=== PATIENT | male | born 1975 ===

== ENCOUNTER 2016-11-10 23:06 | Observation (INO) | payer MEDICAID ==
[2016-11-10 23:13] VITALS: RESP 17; O2SAT 100
[2016-11-10] MEDS ORDERED: Iohexol 240 (50 ml) PO ONE (23:53)
[2016-11-10] MEDS ORDERED: Sodium Chloride 0.9% 1,000 ML IV STA (23:54)
[2016-11-11] MEDS ORDERED: Iohexol 240 (50 ml) ONE (00:14)
--- NOTE | 2016-11-11 00:18 | ED PDOC ---
HPI:Nausea, Vomiting, Diarrhea Time Seen by Provider: 11/10/16 23:34 Chief Complaint (Nursing): GI Problem Chief Complaint (Provider): Abdominal Pain, Vomiting, Nausea and Diarrhea History Per: Patient History/Exam Limitations: no limitations Onset/Duration Of Symptoms: Hrs Current Symptoms Are (Timing): Still Present Associated Symptoms: Nausea, Vomiting, Diarrhea Additional Complaint(s): Alec Chapa, a 41 year old male, who has HIV (does not know CV4 or viral load) and is status post appendectomy presents to the ED complaining of diarrhea, nausea, abdominal pain and vomiting. The patient reports that he was [facility] and around 2pm he started developing fever and pain. He states that he has had 10 episodes of non bloody and non bilious vomiting and diarrhea. Patient is compliant with all HIV medication. Past Medical History Reviewed: Historical Data, Nursing Documentation, Vital Signs Vital Signs: Last Vital Signs Temp 97.5 F L 11/10/16 23:10 Pulse 85 11/10/16 23:10 Resp 17 11/10/16 23:10 BP 127/74 11/10/16 23:10 Pulse Ox 100 11/10/16 23:10 - Medical History PMH: HIV - Surgical History Surgical History: Appendectomy - Family History Family History: States: Unknown Family Hx - Home Medications Home Medications: Ambulatory Orders Medication Instructions Recorded Ciprofloxacin [Cipro] 500 mg PO BID 7 Days 11/11/16 Dicyclomine [Dicyclomine HCl] 10 mg PO TID #20 cap 11/11/16 metroNIDAZOLE [Flagyl] 500 mg PO BID 7 Days 11/11/16 - Allergies Allergies/Adverse Reactions: Allergies Allergy/AdvReac Type Severity Reaction Status Date / Time No Known Allergies Allergy Verified 11/10/16 23:13 Review of Systems Constitutional: Positive for: Fever Gastrointestinal: Positive for: Nausea, Vomiting (x10 episodes (non bloody, non bilious)), Abdominal Pain, Diarrhea Physical Exam - Reviewed Nursing Documentation Reviewed: Yes Vital Signs Reviewed: Yes - Physical Exam Appears: Positive for: Non-toxic, No Acute Distress Head Exam: Positive for: ATRAUMATIC, NORMAL INSPECTION, NORMOCEPHALIC Skin: Positive for: Warm, Dry, Pallor Eye Exam: Positive for: Normal appearance, EOMI, PERRL ENT: Positive for: Normal ENT Inspection Neck: Positive for: Normal, Painless ROM, Supple Cardiovascular/Chest: Positive for: Regular Rate, Rhythm, Chest Non Tender. Negative for: Tachycardia Respiratory: Positive for: Normal Breath Sounds. Negative for: Wheezing, Respiratory Distress Gastrointestinal/Abdominal: Positive for: Soft, Tenderness (Right upper and lower tenderness to palpation.). Negative for: Guarding, Rebound Neurologic/Psych: Positive for: Alert, Oriented, Gait - Laboratory Results Result Diagrams: 11/10/16 00:14 11/10/16 00:14 - ECG O2 Sat by Pulse Oximetry: 100 (RA) Pulse Ox Interpretation: Normal Medical Decision Making Medical Decision Makin Initial Impression: Diverticulitis vs Colitis vs Other intraabdominal infection Initial Plan: * ABD&PELV PO and IV Contrast * Comp Metabolic Panel * Lactic Acid * Lipase * CBC * Morphine 2mg IVP * NS 1000mls IV 1000mls/hr * Omnipaque 50ml PO * Zofran 4mg IVP * Blood Culture * Urine Culture * ED Rectal Temp * Urinalysis * Reevaluation 0358 CT Abdomen and Pelvis With Intravenous Contrast IMPRESSION: 1. Enteritis, nonspecific. Consider inflammatory or infectious etiologies. 2. Incidental/non-acute findings are described above. 0416 Patient tolerated PO challenge Patient instructed to follow up with PMD and instructed to return to ED if symptoms persist. Scribe Attestation Documented by Lita Krishnamurthy acting as a scribe for Mustapha Ahumada MD. Provider Attestation All medical record entries made by the Scribe were at my direction and personally dictated by me. I have reviewed the chart and agree that the record accurately reflects my personal performance of the history, physical exam, medical decision making, and the department course for this patient. I have also personally directed, reviewed, and agree with the discharge instructions and disposition. ED OBSERVATION Date of observation admission: 11/11/16 Time of observation admission: 00:45 - Observation admission statement Patient is being placed in observation because:: Pending ABD&PELV CT results - Progress Note Progress Note: 11/11/16 00:47 Patient is stable. 11/11/16 02:09 Patient is resting comfortably. 11/11/16 04:16 Patient is feeling better, PO challenge is being tolerated. Disposition - Clinical Impression Clinical Impression: Enteritis - Disposition Disposition: Routine/Home Disposition Time: 04:07 Condition: IMPROVED
[2016-11-11 00:20] LABS: BASO % 0.2 % (0.0-2.0); EOS % 0.2 % (0.0-4.0); HEMOGLOBIN 14.8 g/dL (12.0-18.0); LYMPH # 0.5 K/uL (1.0-4.3); MEAN CELL VOLUME 95.3 fl (80.0-94.0); MEAN CORPUSCULAR HEMOGLOBIN 32.4 pg (27.0-31.0); MEAN PLATELET VOLUME 9.1 fl (7.2-11.7); MONO # 1.3 K/uL (0.0-0.8); MONO % 9.6 % (0.0-10.0); NEUT # 11.6 K/uL (1.8-7.0); PLATELET COUNT 175 K/uL (130-400); RBC 4.56 Mil/uL (4.40-5.90); RED CELL DISTRIBUTION WIDTH 14.1 % (11.5-14.5); WHITE BLOOD COUNT 13.4 K/uL (4.8-10.8)
[2016-11-11 00:31] LABS: ALB/GLOB RATIO 1.1 (1.0-2.1); ALBUMIN 4.2 g/dL (3.5-5.0); ALT/SGPT 52 U/L (21-72); AST/SGOT 43 U/L (17-59); BLOOD UREA NITROGEN 15 mg/dl (9-20); CALCIUM 8.6 mg/dL (8.4-10.2); GFR AFRICAN-AMERICAN > 60; GFR NON-AFRICAN AMERICAN > 60; LIPASE 36 U/L (23-300)
[2016-11-11 01:06] LABS: URINE BACTERIA RARE (<OCC); URINE BILIRUBIN NEGATIVE (NEGATIVE); URINE BLOOD NEGATIVE (NEGATIVE); URINE CLARITY SLIGHTY-CLOUDY (Clear); URINE COLOR YELLOW (YELLOW); URINE GLUCOSE (UA) NEG (Normal); URINE LEUKOCYTE ESTERASE NEG Leu/uL (Negative); URINE NITRATE NEGATIVE (NEGATIVE); URINE PROTEIN NEGATIVE (NEGATIVE); URINE UROBILINOGEN 0.2-1.0 mg/dL (0.2-1.0)
[2016-11-11 01:06] LABS: LYMPHOCYTE 4 % (20-50); MONOCYTE 6 % (0-10); NEUTROPHIL 89 % (42-75); PLATELET ESTIMATE NORMAL (NORMAL); REACTIVE LYMPHOCYTES 1 % (0-0); TOTAL CELLS COUNTED 100
[2016-11-11] MEDS ORDERED: Sodium Chloride 0.9% 1,000 ML IV STA (01:32)
[2016-11-11] MEDS ORDERED: Iohexol 300 100 ML IJ ONE (02:40)
[2016-11-11] MEDS ORDERED: Sodium Chloride 0.9% 50 ML IV ONE (02:40)
--- NOTE | 2016-11-11 03:58 | CT ---
EXAM: CT Abdomen and Pelvis With Intravenous Contrast CLINICAL HISTORY: 41 years old, male; Pain; Abdominal pain; Generalized; Prior surgery; Surgery date: 6+ months; Surgery type: Appendectomy; Additional info: HX of hiv, fever, n/v/abd pain TECHNIQUE: Axial computed tomography images of the abdomen and pelvis with intravenous contrast. This CT exam was performed using one or more of the following dose reduction techniques: automated exposure control, adjustment of the mA and/or kV according to patient size, and/or use of iterative reconstruction technique. Coronal and sagittal reformatted images were created and reviewed. CONTRAST: 95 mL of [id number] administered intravenously. COMPARISON: No relevant prior studies available. FINDINGS: Limitations: Motion artifact - mild. Lower thorax: No acute findings. ABDOMEN: Liver: Unremarkable. No mass. Gallbladder and bile ducts: No calcified stones. No ductal dilation. Pancreas: No ductal dilation. No mass. Spleen: No splenomegaly. Adrenals: No mass. Kidneys and ureters: No mass. No hydronephrosis. Stomach and bowel: [id number] mural thickening of mid to distal small bowel. No obstruction. Appendix: Appendectomy. PELVIS: Bladder: Unremarkable. Reproductive: Unremarkable as visualized. ABDOMEN and PELVIS: Intraperitoneal space: No significant fluid collection. No free air. Bones/joints: No acute fracture. Soft tissues: Unremarkable. Vasculature: Mild varices within LEFT upper quadrant. No aneurysm. Lymph nodes: No pathologically enlarged lymph nodes. IMPRESSION: 1. Enteritis, nonspecific. Consider inflammatory or infectious etiologies. 2. Incidental/non-acute findings are described above.
[2016-11-11 04:20] VITALS: BP 121/71; PULSE 77; TEMP 98.2
== END 2016-11-11 04:10 | disposition home or self-care (01) ==
LOC: H.ER 23:06 → H.EROBSV 11-11 00:45
PROVIDERS: ADMIT Emergency Medicine; ATTEND Emergency Medicine
DX: K52.9 Noninfective gastroenteritis and colitis, unspecified (principal); Z21 Asymptomatic human immunodeficiency virus [HIV] infection status

== ENCOUNTER 2016-12-01 10:17 | Emergency (ER) | payer MEDICAID ==
[2016-12-01 10:40] VITALS: BP 147/68; PULSE 75; RESP 19; TEMP 97; O2SAT 100
[2016-12-01] MEDS ORDERED: Sodium Chloride 0.9% 1,000 ML IV STA (10:43)
--- NOTE | 2016-12-01 10:51 | ED PDOC ---
HPI: Back Time Seen by Provider: 12/01/16 10:28 Chief Complaint (Nursing): Back Pain Chief Complaint (Provider): Flank pain History Per: Patient History/Exam Limitations: no limitations Onset/Duration Of Symptoms: Days (x 6) Current Symptoms Are (Timing): Still Present Additional Complaint(s): Alec is a 41 y/o male who presents to the ED complaining of right flank pain , ongoing for 6 days. Denies any associated fever, nausea, vomiting, dysuria, or hematuria. Admits taking Tylenol without relief. Patient also has medical history of HIV, is on anti-virals, and does not know his CBC count. PMD: Unknown Past Medical History Reviewed: Historical Data, Nursing Documentation, Vital Signs Vital Signs: Last Vital Signs Temp 97 F L 12/01/16 10:37 Pulse 75 12/01/16 10:37 Resp 19 12/01/16 10:37 BP 147/68 12/01/16 10:37 Pulse Ox 100 12/01/16 10:37 - Medical History PMH: HIV - Surgical History Surgical History: Appendectomy - Family History Family History: States: Unknown Family Hx - Social History Ex-Smoker (has not smoked in the last 12 months): Yes Alcohol: Occasional Drugs: Denies - Home Medications Home Medications: Ambulatory Orders Medication Instructions Recorded Ciprofloxacin [Cipro] 500 mg PO BID 7 Days 11/11/16 Dicyclomine [Dicyclomine HCl] 10 mg PO TID #20 cap 11/11/16 metroNIDAZOLE [Flagyl] 500 mg PO BID 7 Days 11/11/16 Naproxen [Naprosyn] 500 mg PO BID PRN #15 tablet 12/01/16 - Allergies Allergies/Adverse Reactions: Allergies Allergy/AdvReac Type Severity Reaction Status Date / Time No Known Allergies Allergy Verified 11/10/16 23:13 Review of Systems ROS Statement: Except As Marked, All Systems Reviewed And Found Negative Constitutional: Negative for: Fever Gastrointestinal: Negative for: Nausea, Vomiting Genitourinary Male: Negative for: Dysuria, Hematuria Musculoskeletal: Positive for: Back Pain (Right flank pain) Physical Exam - Reviewed Nursing Documentation Reviewed: Yes Vital Signs Reviewed: Yes - Physical Exam Appears: Positive for: Non-toxic, In Acute Distress (mild painful distress) Head Exam: Positive for: ATRAUMATIC, NORMAL INSPECTION, NORMOCEPHALIC Skin: Positive for: Normal Color, Warm, Dry Eye Exam: Positive for: EOMI, Normal appearance, PERRL Neck: Positive for: Normal, Painless ROM, Supple Cardiovascular/Chest: Positive for: Regular Rate, Rhythm. Negative for: Murmur Respiratory: Positive for: Normal Breath Sounds. Negative for: Accessory Muscle Use, Respiratory Distress Gastrointestinal/Abdominal: Positive for: Soft, Tenderness (mild right upper quadrant tenderness on palpation). Negative for: Guarding, Rebound Back: Positive for: R CVA Tenderness (mild) Extremity: Positive for: Normal ROM. Negative for: Pedal Edema, Deformity Neurologic/Psych: Positive for: Alert, Oriented - Laboratory Results Result Diagrams: 12/01/16 10:50 12/01/16 10:50 - ECG O2 Sat by Pulse Oximetry: 100 (RA) Pulse Ox Interpretation: Normal Medical Decision Making Medical Decision Making: Time: 10:42 Initial Impression: UTI, Pyelonephritis, nephrolithiasis Initial Plan: --CMP --CBC --ED Urine dipstick --Urinalysis --NS IV 1000 ml at 1000 mls/hr --Toradol 15 mg IV --Pending CT Abdomen/Pelvis Time: 12:07 CT Abdomen/Pelvis FINDINGS: LOWER THORAX: Unremarkable. LIVER: Unremarkable. No gross lesion or ductal dilatation. GALLBLADDER AND BILE DUCTS: Unremarkable. PANCREAS: Unremarkable. No gross lesion or ductal dilatation. SPLEEN: Unremarkable. ADRENALS: Unremarkable. No mass. KIDNEYS AND URETERS: Unremarkable. No hydronephrosis. No solid mass. VASCULATURE: Unremarkable. No aortic aneurysm. BOWEL: Unremarkable. No obstruction. No gross mural thickening. APPENDIX: Removed. PERITONEUM: Unremarkable. No free fluid. No free air. LYMPH NODES: Unremarkable. No enlarged lymph nodes. BLADDER: Unremarkable. REPRODUCTIVE: Unremarkable. BONES: No acute fracture. OTHER FINDINGS: None. IMPRESSION: Unremarkable non contrast enhanced CT of the abdomen and pelvis. Time: 12:12 Clinical Impression: Low back pain Upon provider evaluation patient is medically stable, and requires no further treatment in the ED at this time. Patient will be discharged with Rx for Naprosyn PRN for pain. Counseling was provided and all questions were answered regarding diagnosis and need for follow up with PMD. There is agreement to discharge plan. Return if symptoms persist or worsen. Scribe Attestation: Documented by Pauline Douglas, acting as a scribe for Sandi Phillips MD Provider Scribe Attestation: All medical record entries made by the Scribe were at my direction and personally dictated by me. I have reviewed the chart and agree that the record accurately reflects my personal performance of the history, physical exam, medical decision making, and the department course for this patient. I have also personally directed, reviewed, and agree with the discharge instructions and disposition. Disposition - Clinical Impression Clinical Impression: Low back pain - Patient ED Disposition Is Patient to be Admitted: No Doctor Will See Patient In The: Office Counseled Patient/Family Regarding: Studies Performed, Diagnosis, Need For Followup, Rx Given - Disposition Referrals: Mykel Salvador MD [Primary Care Provider] - Disposition: Routine/Home Disposition Time: 12:12 Condition: STABLE Prescriptions: Naproxen [Naprosyn] 500 mg PO BID PRN #15 tablet PRN Reason: Pain, Moderate (4-7) Instructions: Back Pain (ED) Forms: [employer] (Slovenian)
[2016-12-01 10:58] LABS: BASO # 0.1 K/uL (0.0-0.2); EOS # 0.4 K/uL (0.0-0.7); HEMOGLOBIN 14.8 g/dL (12.0-18.0); LYMPH # 1.5 K/uL (1.0-4.3); LYMPH % 30.9 % (20.0-40.0); MEAN CELL VOLUME 97.1 fl (80.0-94.0); MEAN CORPUSCULAR HEMOGLOBIN 32.6 pg (27.0-31.0); MEAN CORPUSCULAR HGB CONC 33.6 g/dL (33.0-37.0); MEAN PLATELET VOLUME 9.3 fl (7.2-11.7); MONO # 0.6 K/uL (0.0-0.8); MONO % 11.7 % (0.0-10.0); NEUT # 2.5 K/uL (1.8-7.0); NEUT % 49.4 % (50.0-75.0); NRBC % 0.1 % (0.0-0.0); RBC 4.53 Mil/uL (4.40-5.90)
[2016-12-01 11:00] LABS: URINE BILIRUBIN NEGATIVE (NEGATIVE); URINE BLOOD NEGATIVE (NEGATIVE); URINE CLARITY CLEAR (Clear); URINE COLOR STRAW (YELLOW); URINE GLUCOSE (UA) NEG (Normal); URINE LEUKOCYTE ESTERASE NEG Leu/uL (Negative); URINE NITRATE NEGATIVE (NEGATIVE); URINE PROTEIN NEGATIVE (NEGATIVE); URINE UROBILINOGEN 0.2-1.0 mg/dL (0.2-1.0)
[2016-12-01 11:08] LABS: ALB/GLOB RATIO 1.2 (1.0-2.1); ALBUMIN 4.1 g/dL (3.5-5.0); ALT/SGPT 36 U/L (21-72); AST/SGOT 29 U/L (17-59); BLOOD UREA NITROGEN 12 mg/dl (9-20); CALCIUM 9.1 mg/dL (8.4-10.2); GFR AFRICAN-AMERICAN > 60; GFR NON-AFRICAN AMERICAN > 60
--- NOTE | 2016-12-01 12:09 | CT ---
PROCEDURE: CT Abdomen and Pelvis without intravenous contrast HISTORY: R flank pain COMPARISON: None. TECHNIQUE: Technique. Contrast Dose: Radiation dose: Total exam DLP = mGy-cm. This CT exam was performed using one or more of the following dose reduction techniques: Automated exposure control, adjustment of the mA and/or kV according to patient size, and/or use of iterative reconstruction technique. FINDINGS: LOWER THORAX: Unremarkable. LIVER: Unremarkable. No gross lesion or ductal dilatation. GALLBLADDER AND BILE DUCTS: Unremarkable. PANCREAS: Unremarkable. No gross lesion or ductal dilatation. SPLEEN: Unremarkable. ADRENALS: Unremarkable. No mass. KIDNEYS AND URETERS: Unremarkable. No hydronephrosis. No solid mass. VASCULATURE: Unremarkable. No aortic aneurysm. BOWEL: Unremarkable. No obstruction. No gross mural thickening. APPENDIX: Removed. PERITONEUM: Unremarkable. No free fluid. No free air. LYMPH NODES: Unremarkable. No enlarged lymph nodes. BLADDER: Unremarkable. REPRODUCTIVE: Unremarkable. BONES: No acute fracture. OTHER FINDINGS: None. IMPRESSION: Unremarkable non contrast enhanced CT of the abdomen and pelvis.
== END 2016-12-01 12:47 | disposition home or self-care (01) ==
LOC: H.ER 10:17 → SUPCPDRO 10:17 → H.ER 12:47
DX: M54.5 Low back pain (principal); Z21 Asymptomatic human immunodeficiency virus [HIV] infection status; Z79.899 Other long term (current) drug therapy

== ENCOUNTER 2017-05-09 08:37 | Emergency (ER) | payer MEDICAID ==
[2017-05-09 08:49] VITALS: BP 137/72; PULSE 98; RESP 21; TEMP 97.7; O2SAT 99
--- NOTE | 2017-05-09 09:02 | ED PDOC ---
HPI: CCC, URI, Sore Throat Time Seen by Provider: 05/09/17 08:53 Chief Complaint (Nursing): Cough, Cold, Congestion Chief Complaint (Provider): Cough, sore throat History Per: Patient History/Exam Limitations: no limitations Onset/Duration Of Symptoms: Days (x3) Current Symptoms Are (Timing): Still Present Location Of Pain: Throat Associated Symptoms: Cough (productive), Sputum (yellow), Other (body aches and sore throat). denies: Fever Ear Symptoms: Bilateral: None Additional Complaint(s): Alec Chapa is a 41 year old male, with a past medical history of HIV positive, who presents to the emergency department complaining of sore throat, productive cough with yellow sputum associated with body aches onset for x3 days. Patient denies any fever or shortness of breath. No further medical complaints. PMD: Mykel Salvador Past Medical History Reviewed: Historical Data, Nursing Documentation, Vital Signs Vital Signs: Last Vital Signs Temp 97.7 F 05/09/17 08:48 Pulse 98 H 05/09/17 08:48 Resp 21 05/09/17 08:48 BP 137/72 05/09/17 08:48 Pulse Ox 99 05/09/17 09:07 - Medical History PMH: HIV - Surgical History Surgical History: Appendectomy - Family History Family History: States: Unknown Family Hx - Social History Ex-Smoker (has not smoked in the last 12 months): Yes Alcohol: Social Drugs: Denies - Home Medications Home Medications: Ambulatory Orders Medication Instructions Recorded Ciprofloxacin [Cipro] 500 mg PO BID 7 Days tab 11/11/16 Dicyclomine [Dicyclomine HCl] 10 mg PO TID #20 cap 11/11/16 metroNIDAZOLE [Flagyl] 500 mg PO BID 7 Days tab 11/11/16 Naproxen [Naprosyn] 500 mg PO BID PRN #15 tablet 12/01/16 Azithromycin [Zithromax] 250 mg PO DAILY #6 tab 05/09/17 Oseltamivir [Tamiflu] 75 mg PO BID #10 cap 05/09/17 - Allergies Allergies/Adverse Reactions: Allergies Allergy/AdvReac Type Severity Reaction Status Date / Time No Known Allergies Allergy Verified 11/10/16 23:13 Review of Systems ROS Statement: Except As Marked, All Systems Reviewed And Found Negative Constitutional: Positive for: Other (body aches). Negative for: Fever ENT: Positive for: Throat Pain Respiratory: Positive for: Cough (productive), Sputum (yellow). Negative for: Shortness of Breath Physical Exam - Physical Exam Appears: Positive for: Non-toxic Head Exam: Positive for: ATRAUMATIC, NORMAL INSPECTION, NORMOCEPHALIC Skin: Positive for: Normal Color, Warm, Dry Eye Exam: Positive for: Normal appearance ENT: Positive for: Pharyngeal Erythema. Negative for: Tonsillar Exudate Neck: Positive for: Painless ROM, Supple Cardiovascular/Chest: Positive for: Regular Rate, Rhythm. Negative for: Murmur Respiratory: Positive for: Rhonchi (scattered). Negative for: Wheezing Gastrointestinal/Abdominal: Positive for: Normal Exam, Soft. Negative for: Tenderness Back: Positive for: Normal Inspection. Negative for: L CVA Tenderness, R CVA Tenderness Extremity: Positive for: Normal ROM. Negative for: Deformity, Swelling Neurologic/Psych: Positive for: Alert, Oriented - ECG O2 Sat by Pulse Oximetry: 99 (RA) Pulse Ox Interpretation: Normal Medical Decision Making Medical Decision Making: Initial Plan: --Chest two views (PA/LAT) [RAD] --Influenza A B --reevaluation Scribe Attestation: Documented by Alexis Gallardo, acting as a scribe for Jose Mancilla MD Provider Scribe Attestation: All medical record entries made by the Scribe were at my direction and personally dictated by me. I have reviewed the chart and agree that the record accurately reflects my personal performance of the history, physical exam, medical decision making, and the department course for this patient. I have also personally directed, reviewed, and agree with the discharge instructions and disposition. Disposition - Clinical Impression Clinical Impression: Influenza, Bronchitis - Patient ED Disposition Is Patient to be Admitted: No Counseled Patient/Family Regarding: Studies Performed, Diagnosis, Need For Followup, Rx Given - Disposition Referrals: Mykel Salvador MD [Staff Provider] - Disposition: Routine/Home Disposition Time: 09:43 Condition: FAIR Prescriptions: Azithromycin [Zithromax] 250 mg PO DAILY #6 tab Oseltamivir [Tamiflu] 75 mg PO BID #10 cap Instructions: Influenza (ED), Acute Bronchitis (ED) Forms: [employer] (Mauritian)
--- NOTE | 2017-05-09 11:25 | RAD ---
HISTORY: cough COMPARISON: No prior. TECHNIQUE: Chest PA and lateral FINDINGS: LUNGS: No active pulmonary disease. PLEURA: No significant pleural effusion identified. No pneumothorax apparent. CARDIOVASCULAR: Normal. OSSEOUS STRUCTURES: No significant abnormalities. VISUALIZED UPPER ABDOMEN: Normal. OTHER FINDINGS: None. IMPRESSION: No active disease.
== END 2017-05-09 09:55 | disposition home or self-care (01) ==
LOC: H.ER 08:37
DX: J11.1 Influenza due to unidentified influenza virus with other respiratory manifestations (principal); J40 Bronchitis, not specified as acute or chronic; B20 Human immunodeficiency virus [HIV] disease